=== PATIENT | male | born 1995 | race Caucasian/White ===

== ENCOUNTER 2023-12-23 23:11 | Emergency (ER) | payer MEDICAID ==
[~2023-12-23] VITALS: Ht 175.3 cm; Wt 79.5 kg
[2023-12-23 23:14] VITALS: BP 130/73; PULSE 73; RESP 17; TEMP 98.5; O2SAT 98
[2023-12-23] MEDS: LIDOcaine/epinephrine/tetracaine TOPICAL sol 3 ML syringe TOP ONE (23:25)
[2023-12-23] MEDS: bacitracin 15gm ointment TP ONE (23:25)
[2023-12-23] MEDS: TETanus/Pertussis (Acell)/Diphther VAC/PF (Tdap-Adult) 0.5ml syringe IMVAC ONE (23:25)
[2023-12-23] MEDS: LIDOcaine 1% W/epiNEPHrine 1:100,000 20ml vial IJ ONE (23:25)
[2023-12-23] MEDS: amox tr/potassium clavulanate 875/125mg TAB PO ONE (23:43)
[2023-12-23] MEDS: ondansetron 4mg rapidly disintigrating tab PO ONE (23:43)
[2023-12-23] MEDS: LORazepam 1 MG tablet PO ONE (23:43)
[2023-12-24] MEDS ORDERED: AMOX-115 PO (01:00)
== END 2023-12-24 01:15 | disposition home or self-care (01) ==
LOC: ER 23:11
DX: S01.551A Open bite of lip, initial encounter (principal); Z88.2 Allergy status to sulfonamides; Z88.1 Allergy status to other antibiotic agents; W54.0XXA Bitten by dog, initial encounter; Y93.89 Activity, other specified; Y92.89 Other specified places as the place of occurrence of the external cause; Y99.8 Other external cause status
CPT/HCPCS: 40650; 90715; 99284; A6449